=== PATIENT | female | born 1960 | race Caucasian/White ===

== ENCOUNTER 2021-07-15 19:18 | Emergency (ER) | payer BC, SELFPAY ==
--- NOTE | 2021-07-15 19:31 | PC.NURSE ---
pt leaving before seeing provider at this time. pt states I just realized my insurance doesn't cover here it only covers [facility].
== END 2021-07-15 19:25 | disposition left against medical advice (07) ==
LOC: ANHED 19:37
PROVIDERS: PCP Physician Assistant
DX: Z53.21 Procedure and treatment not carried out due to patient leaving prior to being seen by health care provider (principal)
CPT/HCPCS: 99199